=== PATIENT | male | born 1970 | race Caucasian/White ===

== ENCOUNTER → 2023-05-31 15:43 | Outpatient (CLI) | payer BC, SELFPAY ==
[2023-05-31 15:18] LABS: Cholesterol 189 mg/dl (140-200); Triglycerides 40 mg/dl (30-150); VLDL Cholesterol 8 mg/dL (0-40)
[2023-05-31 15:28] LABS: Direct LDL Cholesterol 64.11 mg/dL (100-129)
[2023-05-31 15:37] LABS: Free Thyroxine Index 1.9 ug/dL (5.93-13.13); T4 (Thyroxine) 5.1 ug/dl (5.53-11.0); Triiodothryronine (T3) Uptake 38 % (23.5-40.5)
[2023-05-31 15:51] LABS: Thyroid Stimulating Hormone 1.85 uIU/mL (0.465-4.68)
[2023-05-31 15:58] LABS: Chol/HDL Ratio 1.8 (1-3.5); HDL Cholesterol 108 mg/dl (40-60)
[2023-05-31 16:46] LABS: Barbiturates Screen,Urine Negative ng/ml (<200)
[2023-05-31 16:48] LABS: Cannabinoid Screen,Urine Negative ng/ml (<50)
[2023-05-31 16:49] LABS: Cocaine Screen,Urine Negative ng/ml (<300); Methadone Screen,Urine Negative ng/ml (<300)
[2023-05-31 16:50] LABS: Opiate Screen,Urine Negative ng/ml (<300)
[2023-05-31 16:51] LABS: Phencyclidine Screen,Urine Negative ng/ml (<25)
[2023-05-31 17:01] LABS: Amphetamine/Metha Screen,Urine Negative ng/ml (<1000)
[2023-05-31 17:19] LABS: Hemoglobin A1C 5.4 % (4.0-6.0)
[2023-05-31 17:44] LABS: Benzodiazepines Screen,Urine Negative ng/ml (<200)
[2023-05-31 21:50] LABS: Prostate Specific Ag Screen 0.8 ng/ml (0.0-4.0)
== END ==
PROVIDERS: Family Medicine; PCP Emergency Medicine; Visit Provider Emergency Medicine
DX: E11.9 Type 2 diabetes mellitus without complications (principal); M79.2 Neuralgia and neuritis, unspecified; Z72.0 Tobacco use
CPT/HCPCS: 80061; 80305; 83036; 84436; 84443; 84479; G0103

== ENCOUNTER → 2023-06-14 14:24 | Outpatient (CLI) | payer BC, SELFPAY ==
[2023-06-14 15:29] LABS: Basophils % 0.6 % (0.1-2.0); Eosinophils # 0.2 K/mm3 (0.0-0.4); Eosinophils % 3.2 % (0.1-12.0); Hematocrit 46.4 % (42.0-52.0); Hemoglobin 14.7 g/dL (14.1-18.0); Lymphocytes # 1.9 K/mm3 (0.7-4.5); Lymphocytes % 32.2 % (10-50); Mean Corpuscular HGB Conc 31.8 g/dL (31.8-35.4); Mean Corpuscular Hemoglobin 30.8 pg (27.0-31.2); Mean Corpuscular Volume 97.1 fl (80-94); Mean Platelet Volume 7.6 fl (7.4-10.4); Monocytes # 0.5 K/mm3 (0.1-1.0); Monocytes % 7.5 % (1.7-9.3); Neutrophils # 3.4 K/mm3 (1.8-7.8); Neutrophils % 56.4 % (37.0-80.0); Platelet Count 332 K/mm3 (142-424); Red Blood Count 4.78 M/mm3 (4.60-6.20); Red Cell Distribution Width 15.6 % (11.5-17.5); White Blood Count 5.9 K/mm3 (4.8-10.8)
[2023-06-14 15:48] LABS: Chloride 106 mmol/L (98-107); Potassium 4.4 mmoL/L (3.5-5.1); Sodium 140 mmol/L (136-145)
[2023-06-14 15:50] LABS: Blood Urea Nitrogen 10 mg/dl (9-20); Estimated Glomerular Filt Rate 119 ml/min (>60); GFR (African American) 144 ML/MIN (>60)
[2023-06-14 15:51] LABS: Alanine Aminotransferase 14 U/L (12-78); Albumin/Globulin Ratio 1.4 (1.1-1.8); Alkaline Phosphatase 125 U/L (38-126); Anion Gap 13.4 mEq/L (5-15); Aspartate Amino Transferase 31 U/L (17-59); Calcium 9.2 mg/dl (8.4-10.2); Carbon Dioxide 25 mmol/L (22.0-30.0); Globulin 2.8 g/dL (1.3-3.2); Glucose 74 mg/dl (74-100); Total Protein,Serum 6.8 g/dl (6.3-8.2)
[2023-06-14 15:57] LABS: Bilirubin,Total 0.1 mg/dl (0.2-1.3)
[2023-06-14 16:07] LABS: 25-OH Vitamin D, Total 22.8 ng/mL (30-100)
[2023-06-14 16:08] LABS: T4 (Thyroxine) 4.5 ug/dl (5.53-11.0)
[2023-06-14 16:29] LABS: Thyroid Stimulating Hormone 1.86 uIU/mL (0.465-4.68)
== END ==
PROVIDERS: PCP Emergency Medicine; Visit Provider Family Medicine
DX: G62.9 Polyneuropathy, unspecified (principal); M79.2 Neuralgia and neuritis, unspecified; E03.9 Hypothyroidism, unspecified; Z72.0 Tobacco use; Z79.899 Other long term (current) drug therapy; Z76.89 Persons encountering health services in other specified circumstances
CPT/HCPCS: 36415; 80053; 82306; 84436; 84443; 85025

== ENCOUNTER → 2023-06-19 13:25 | Outpatient (CLI) | payer BC, SELFPAY ==
[2023-06-19 21:22] LABS: Benzodiazepines Screen,Urine Negative ng/ml (<200)
[2023-06-19 21:23] LABS: Amphetamine/Metha Screen,Urine Negative ng/ml (<1000); Barbiturates Screen,Urine Negative ng/ml (<200)
[2023-06-19 21:24] LABS: Cannabinoid Screen,Urine Negative ng/ml (<50); Methadone Screen,Urine Negative ng/ml (<300)
[2023-06-19 21:25] LABS: Cocaine Screen,Urine Negative ng/ml (<300)
[2023-06-19 21:26] LABS: Opiate Screen,Urine Negative ng/ml (<300)
[2023-06-19 21:27] LABS: Phencyclidine Screen,Urine Negative ng/ml (<25)
== END ==
PROVIDERS: PCP Emergency Medicine; Visit Provider Emergency Medicine
DX: Z79.899 Other long term (current) drug therapy (principal)
CPT/HCPCS: 80305

== ENCOUNTER → 2023-09-15 14:30 | Outpatient (CLI) | payer BC, SELFPAY ==
--- NOTE | 2023-09-15 14:31 | CT_ITS ---
FINAL REPORT CLINICAL HISTORY: lung cancer screening, 72-sxyy-ibpu history FINDINGS: CTDI vol (mGy): 2.90 DLP: 115.[address] images of the chest were obtained using the low-dose protocol for screening. There are scattered mediastinal lymph nodes, some with calcifications. Densely calcified left anterior descending coronary artery is noted. No axillary mass or adenopathy is identified. On the lung window images, a 5 mm nodule is seen in the anterior right upper lobe on image 38 of series 604. No other pulmonary mass or nodule is seen. IMPRESSION: Lung RADS category 2S: 5 mm anterior right upper lobe nodule. Densely calcified LAD coronary artery. Recommend 12 month followup low-dose CT for further evaluation. Reviewed, Interpreted and Dictated by Kory Rodriguez MD Transcribed by Marilee Benson Authenticated and . [facility]
== END ==
PROVIDERS: PCP Emergency Medicine; Visit Provider Emergency Medicine
DX: Z72.0 Tobacco use (principal)
CPT/HCPCS: 71271

== ENCOUNTER 2024-09-18 22:56 | Outpatient (CLI) | payer BC, SELFPAY ==
[2024-09-18 23:12] LABS: Hematocrit 40.2 % (42.0-52.0); Hemoglobin 14.1 g/dL (14.1-18.0); Mean Corpuscular HGB Conc 35.1 g/dL (31.8-35.4); Mean Corpuscular Hemoglobin 33.3 pg (27.0-31.2); Mean Corpuscular Volume 94.8 fl (80-94); Mean Platelet Volume 9.9 fl (7.4-10.4); Neutrophils % 47.8 % (37.0-80.0); Platelet Count 330 K/mm3 (142-424); Red Blood Count 4.24 M/mm3 (4.60-6.20); Red Cell Distribution Width 14.6 % (11.5-17.5); White Blood Count 4.5 K/mm3 (4.8-10.8)
[2024-09-18 23:13] LABS: Basophils # 0.1 K/mm3 (0-0.2); Basophils % 1.5 % (0.1-2.0); Eosinophils % 0.2 % (0.1-12.0); Lymphocytes # 1.7 K/mm3 (0.7-4.5); Lymphocytes % 36.4 % (10-50); Monocytes # 0.6 K/mm3 (0.1-1.0); Monocytes % 13.9 % (1.7-9.3); Neutrophils # 2.2 K/mm3 (1.8-7.8)
[2024-09-18 23:36] LABS: Alanine Aminotransferase 12 U/L (12-78); Albumin Level 4.3 g/dl (3.5-5.0); Albumin/Globulin Ratio 1.7 (1.1-1.8); Alkaline Phosphatase 88 U/L (38-126); Anion Gap 10.4 mEq/L (5-15); Aspartate Amino Transferase 35 U/L (17-59); Bilirubin,Total 0.2 mg/dl (0.2-1.3); Blood Urea Nitrogen 8 mg/dl (9-20); Calcium 9.3 mg/dl (8.4-10.2); Carbon Dioxide 29 mmol/L (22.0-30.0); Chloride 104 mmol/L (98-107); Cholesterol 186 mg/dl (140-200); Estimated Glomerular Filt Rate 119 ml/min (>60); GFR (African American) 144 ML/MIN (>60); Globulin 2.6 g/dL (1.3-3.2); Glucose 83 mg/dl (74-100); HDL Cholesterol 92 mg/dl (40-60); Potassium 4.4 mmoL/L (3.5-5.1); Sodium 139 mmol/L (136-145); Total Protein,Serum 6.9 g/dl (6.3-8.2); Triglycerides 49 mg/dl (30-150); VLDL Cholesterol 10 mg/dL (0-40)
[2024-09-18 23:46] LABS: Direct LDL Cholesterol 81.03 mg/dL (100-129)
[2024-09-18 23:52] LABS: 25-OH Vitamin D, Total 18.6 ng/mL (30-100)
[2024-09-19 00:07] LABS: Prostate Specific Ag Screen 0.7 ng/ml (0.0-4.0)
== END 2024-09-18 23:59 | disposition home or self-care (01) ==
LOC: LAB.DROPOF 22:57
PROVIDERS: PCP Nurse Practitioner Family; Visit Provider Nurse Practitioner Family
DX: E03.9 Hypothyroidism, unspecified (principal); R79.89 Other specified abnormal findings of blood chemistry
CPT/HCPCS: 80050; 80053; 80061; 82306; 84443; 85025; G0103

== ENCOUNTER 2025-03-05 09:57 | Outpatient (CLI) | payer BC, SELFPAY ==
--- OUTSIDE RECORDS SUMMARY | 2025-03-05 09:59 | XMS_ITS | Data Portability ---
Author Organization [facility] Address [address] [place] [address] Care Team Providers Care Vehicle Upholsterer Name Role Phone KARY MALHOTRA Referring Provider KARY MALHOTRA Primary Care Provider Assessment Encounter Date Assessment Date Assessment LastModified by Organization Details LastModified Time 07/12/2022 07/12/2022 51-year-old male with: 1) GERD: Not optimally controlled on Omeprazole 20 mg daily. Will change to Pantoprazole 40 mg p.o. daily. He may also take Pepcid complete 1-2x daily as needed for breakthrough heartburn. Standard reflux precautions and dietary recommendations counseled. -Recommended EGD due to persistent symptoms and for screening of Keyes's esophagus, however he declines at this time. 2) History of hepatitis C: Previously treated with SVR achieved. He denies risk factors for re-exposure. He was previously vaccinated against hepatitis A and B. 3) Colorectal cancer screening: Recommended screening colonoscopy. He defers at this time. [email or web address] Not available 07/12/2022 16:12:16 Plan of Treatment Reminders Order Date Submit Date Provider Last Modified By Organization Details Last Modified Time Details Appointments None recorded. Lab None recorded. Referral gastroenter ologist referral 2021 022 [email or web address] 3 Volodymyr Mojica MD, [address] [place] [address] Rd, [address], [place], [address], 09:01:14 Procedures None recorded. Surgeries None recorded. Imaging None recorded. Medication Orders prednisone 20 mg tablet 2022 023 [facility], [address] [place] [address], [address], [place], [address], 3 15:55:07 Augmentin 875 mg-125 mg tablet 2022 023 [facility], [address] [place] [address], [place], [address], 3 15:55:07 Solu-Medrol (PF) 125 mg/2 mL solution for injection 2022 023 [email or web address] Not available 3 08:05:56 Medrol (Harjeet) 4 mg tablets in a dose pack 2022 023 [facility], [address] [place] [address], [address], 3 15:36:30 Mucinex 1,200 mg tablet, extended release 2022 023 [facility], [address] [place] [address], [address], 3 15:06:45 albuterol sulfate HFA 90 mcg/actuati on aerosol inhaler 2022 023 [facility], [address] [place] [address], [place], [address], 3 15:06:38 benzonatate 200 mg capsule 2022 023 [facility], [address] [place] [address], [place], [address], 3 15:06:38 pantoprazol e 40 mg tablet,marissa yed release 2021 022 [facility], [address] [place] [address], [address], 2 15:40:19 Pepcid Complete 10 mg-800 mg-165 mg chewable tablet 2021 022 [facility], [address] [place] [address] [address], [place], [address], 2 16:11:40 omeprazole 20 mg capsule,del ayed release 2021 022 [email or web address] 5 [facility], [address] [place] [address], [address], [place], [address], 2 17:10:25 Carafate 1 gram tablet 2021 022 [facility], [address] [place] [address], [address], [place], [address], 2 16:49:30 Patient TargetsNo targets recorded. Patient Instructions Encounter Date Encounter Id Patient Instructions Last Modified By Organization Details Last Modified Time 02/08/2023 [id number] bronchitis: care instructions Not available 02/08/2023 15:05:58 acute bronchitis education Not available 02/08/2023 15:05:58 02/16/2023 [id number] bronchitis: care instructions Not available 02/16/2023 15:00:16 acute bronchitis education Not available 02/16/2023 15:00:16 Reason for Referral Nursing Faculty Referral for Gastroesophageal reflux disease Referring Physician: Kary Malhotra, Family Medicine, Encounter Date: 06/22/2022 Problems Name Problem SNOMED Code Status Onset Date Resolution Date Notes Provider Name and Address Organization Details Recorded Time Requires vaccinatio n 360400087 Active Deena Couch null, [place] - [facility] - [place] & [place] 2 16:25:42 Current drinker 310212 Active Deena Couch null, [place] [facility] [place] 2 16:25:42 Liver enzymes level above reference range 874053880 Active Deena Couch null, [place] - [facility] [place] 2 16:25:42 Heartburn 18171784 Active Deena Couch null, [place] - [facility] [place] 2 16:25:42 Chronic hepatitis C 153046416 Active Deena Couch null, [place] - [facility] - [place] 2 16:25:42 Biliary sludge 27948157 Active Deena Morgan null, [place] - [facility] - [place] 2 16:25:42 Patient encounter status 644986603 Active Deena Morgan null, [facility] [place] [facility] - [place] & [place] 2 16:25:42 Left inguinal hernia 122085944 Active Deena Morgan null, [place] - [facility] - [place] 2 16:25:42 History of hepatitis C 2438909698287 1 Active Deena Morgan null, [place] - [facility] - [place] & [place] 2 16:25:42 Epigastric pain 92919798 Active Deena ellsworth, [place] - [facility] - [place] & [place] 2 16:25:42 Olecranon bursitis 352280476 Active Deena ellsworth, [place] - [facility] - [place] & [place] 2 16:25:42 Gastroesop hageal reflux disease 834436354 Active 2021 Chace Mccurdy PA-C [address] [facility], [place], [address] , [place] - [facility] - [place] & [place] 2 16:06:59 Problem Notes None recorded. Medical Equipment None Reported. Allergies No known drug allergies Medications Name Sig Start Date Stop Date Status Note LastModified by Organization Details LastModified Time clindamycin HCl 300 mg capsule active Not Available Not Available Not Available Carafate 1 gram tablet Take 1 tablet 4 times a day by oral route after meals. 2021 active Not Available Not Available Not Avai lable Pepcid Complete 10 mg-800 mg-165 mg chewable tablet Chew one tablet and swallow 1-2 times daily as needed for heartburn 2021 active Not Available Not Available Not Avai lable ibuprofen 800 mg tablet 1 {tablet} 3 times a day by oral route. active Not Available Not Available No t Available benzonatate 200 mg capsule Take 1 capsule 3 times a day by oral route as needed for 7 days. active Not Available Not Available No t Available prednisone 20 mg tablet Take 1 tablet every day by oral route for 9 days. active Not Available Not Available No t Available cephalexin 500 mg capsule 06/22 completed Not Available Not Available Not Available pantoprazol e 40 mg tablet,marissa yed release Take 1 tablet by mouth once daily, 30 minutes before morning meal, 30 days active Not Available Not Available No t Available nicotine 21 mg/24 hr daily transdermal patch active Not Available Not Available Not Available gabapentin 300 mg capsule active Not Available Not Available Not Available omeprazole 20 mg capsule,del ayed release Take 1 capsule twice a day by oral route as directed for 30 days. active Not Available Not Available No t Available aspirin 81 mg chewable tablet Chew 1 tablet every day by oral route. active Not Available Not Available No t Available methylpredn isolone 4 mg tablets in a dose pack Take 1 dose pk by oral route for 6 days. active Not Available Not Available No t Available albuterol sulfate HFA 90 mcg/actuati on aerosol inhaler Inhale 2 puffs every 4 hours by inhalatio n route as needed for 30 days. active Not Available Not Available No t Available amoxicillin 875 mg-potassiu m clavulanate 125 mg tablet Take 1 tablet every 12 hours by oral route for 10 days. active Not Available Not Available No t Available Mucinex 1,200 mg tablet, extended release Take 1 tablet twice a day by oral route for 7 days. 2022 active Not Available Not Available Not Avai lable Solu-Medrol (PF) 125 mg/2 mL solution for injection Take 125 mg as needed by injection route as needed. 2022 active Not Available Not Available Not Avai lable buprenorphi ne 8 mg-naloxone 2 mg sublingual film DISSOLVE 1 FILM UNDER THE TONGUE EVERY DAY active Not Available Not Available No t Available Vitals Date Recorded Body height Body mass index (BMI) Body weight Body temperature Provider Name and Address Organization Details Last Updated DateTime 02/08/2023 180.34 cm 21.8 kg/m2 68625.13 g 98 [degF] [facility]nie [facility] [place] [facility] [place] 02/08/2023 14:57:10 Date Recorded Body height Body mass index (BMI) Body weight Body temperature Provider Name and Address Organization Details Last Updated DateTime 02/16/2023 180.34 cm 21.6 kg/m2 55621.82 g 98.8 [degF] Nithya Palacios [facility] & [place] 02/16/2023 14:52:16 Date Recorded Body height Body mass index (BMI) Body weight Body temperature Oxygen saturation Oxygen saturation in Arterial blood by Pulse oximetry Heart rate Systolic blood pressure Diastolic blood pressure Provider Name and Address Organization Details Last Updated DateTime 2 180.34 cm 21.9 kg/m2 06858 g 96.8 [degF] 96 % 96 % 81 /min 130 mm[Hg] 86 mm[Hg] Deena VELEZ [facility] & [place] 2 16:33:05 Date Recorded Body height Body mass index (BMI) Body weight Systolic blood pressure Diastolic blood pressure Provider Name and Address Organization Details Last Updated DateTime 07/12/2022 180.34 cm 21.5 kg/m2 07476.22 g 189 mm[Hg] 78 mm[Hg] Anaya Todd [facility] & [place] 2 16:01:01 Social History Question Answer Notes LastModified by Organizat ion Details LastModified Time Tobacco Smoking Status Current Every Day Smoker Deena Morgan [facility] & [place] 06/22/2022 16:27:01 How Much Tobacco Do You Smoke? 1 PPD Information not available 06/22/2022 Sex: Unknown Functional Status Question Answer Note LastModified by Organization D etails LastModified Time What is your level of alcohol consumption? Moderate [email or web address] Information not available 06/22/2022 Mental Status None recorded. Family History Nothing Reported Notes:mother at 58 cad, father alive htn Medical History No medical history recorded. Immunizations Vaccine Type Date Status Note Provider Nam e and Address Organization Details Recorded Time COVID-19, mRNA, LNP-S, PF, 30 mcg/0.3 mL dose 04/29/2021 completed Nithya ellsworth [facility] & [place] 02/08/2023 14:51:14 COVID-19, mRNA, LNP-S, PF, 30 mcg/0.3 mL dose 05/21/2021 completed Nithya ellsworth [place] - [facility] - [place] 02/08/2023 14:51:14 Hep B, adult 07/25/2019 completed Nithya Palacios null, [place] - [facility] - [place] 02/08/2023 14:51:14 Hep A, adult 07/25/2019 completed Nithya Palacios null, [place] - [facility] - [place] & [place] 02/08/2023 14:51:14 Hep B, adult 12/24/2018 completed Nithya Palacios null, [place] - [facility] - [place] & [place] 02/08/2023 14:51:14 Hep B, unspecified formulation 11/16/2018 completed Deena Couch null, [place] - [facility] - [place] & [place] 06/22/2022 16:25:42 Hep A, adult 11/16/2018 completed Deenajohnnie nuno null, [place] - [facility] - [place] & [place] 06/22/2022 16:25:42 Past Encounters Encounter ID Performer Location Encounter Start Date Encounter Closed Date Diagnosis/Indication Diagnosis SNOMED-CT Code Diagnosis ICD10 Code Diagnosis Note [id number] Kary Malhotra MD [address] [place] [address] 06/22/2022 16:19:37 06/22/2022 16:51:22 Gastroesophageal reflux disease 944340884 K21.9 [id number] Chace Mccurdy PA-C [facility] [address] [place] [address] 07/12/2022 15:36:01 07/12/2022 16:01:51 History of hepatitis C 7754305227 9101 Z86.19 Colorectal cancer screening not done 1968440910 100 Z53.9 Gastroesop hageal reflux disease 304856638 K21.9 [id number] Frannie Johnson, DNP, PANEL MACHINE SETTER-C, SENIOR CAREGIVER [address] [place] [address] 02/08/2023 14:46:00 02/08/2023 15:06:55 Acute bronchitis 36434291 J20.9 [id number] Frannie Johnson, JOHN, PANEL MACHINE SETTER-C, SENIOR CAREGIVER [facility] [address] [facility] [address] [place] [address] 02/16/2023 14:46:23 02/16/2023 15:02:10 Acute bronchitis 43854955 J20.9 Health Concerns Section Related Observation LastModified by Organization Detai ls LastModified Time None Recorded Concern Status LastModified by Organization Details LastModified Time None Recorded Advance Directives Directive None Recorded Payers Insurance Date Sequence Insurance Name Policy Number Policy Elizabeth Covered Member ID Elizabeth Member ID Guarantor Name 07/09/2023 1 [place] [id number] Arsenio Brown [id number] Arsenio Brown Notes Date Note Type Note Provider Name and Address Organization Details Recorded Time 06/22/2022 text/html he is here for follow-up. He is having lot of issues with heartburn. He reports significant epigastric pain which is improved with eating. He is taking some of his 's Protonix which does seem to help a bit. He is a smoker and does have a problem with excessive alcohol consumption. He is asking for GI referral which he has had the past. Kary Malhotra MD [address], [place], [address], [facility] 06/22/2022 17:10:45 07/12/2022 text/html Mr. Brown is a pleasant 51-year-old male with PMH of chronic hepatitis C s/p treatment with Mavyret in 2019, history of biliary sludge, and chronic heartburn who presents to the office today for evaluation of frequent heartburn. He is currently taking Omeprazole 20 mg p.o. daily, which is helpful, however he is having frequent breakthrough symptoms. He uses Rolaids for these episodes without the desired effect. He denies dysphagia, nausea, vomiting, or hematemesis. Chace Mccurdy PA-C [address], [place], [address], [facility] & [place] 07/12/2022 16:12:31 02/08/2023 text/html Per patient he started feeling ill yesterday afternoon. Patient has had body aches but no chills or fever. Patient has had headache but no sore throat. Patient says his lungs feel full. Patient has had nasal congestion, post nasal drip and cough. patient has had wheezing and some shortness of breath. Frannie Johnson DNP, PANEL MACHINE SETTERAvinashC, SENIOR CAREGIVER [address], [place], [address], [facility] & [place] 02/08/2023 15:06:11 02/16/2023 text/html Per patient he w as here last week. patient was diagnosed itwh bronchitis. Patient took steroids and something for cough. patient did not get inhaler filled. Patient says that he still feels short of breath and he has a bad cough. patient says his lungs hurt. patient has not had body aches, chills, or fever. Patient denies nausea/vomiting or diarrhea. Patient has not had headache or sore throat. Frannie Johnson DNP, ESTRELLITAC, SENIOR CAREGIVER [address] [facility], [place], [address], [facility] & [place] 02/16/2023 16:06:05
[2025-03-05 11:00] VITALS: PULSE 84; PULSE 87
[2025-03-05] MEDS: ALBUTEROL 0.083% 2.5 MG/3 ML NEB IH (11:00)
== END 2025-03-05 23:59 | disposition home or self-care (01) ==
LOC: RT 09:58
PROVIDERS: PCP Nurse Practitioner Family; Visit Provider Internal Medicine Pulmonary Disease
DX: J44.9 Chronic obstructive pulmonary disease, unspecified (principal); Z72.0 Tobacco use
CPT/HCPCS: 94060; 94640; 94726; 94729

== ENCOUNTER 2025-04-03 08:21 | Outpatient (CLI) | payer BC, SELFPAY ==
--- OUTSIDE RECORDS SUMMARY | 2025-04-03 08:24 | XMS_ITS | Clinical Summary ---
Author Organization [facility] Address [address] [place] [address] Care Team Providers Care Cataloging Assistant Name Role Phone Pcp, No Primary Care Provider Unavailabl e Allergies No known active allergies Medications albuterol 108 (90 Base) MCG/ACT inhaler Inhale 2 puffs every 4 hours by inhalation route as needed for 30 days. Active predniSONE (Deltasone) 20 MG tablet Take 1 tablet every day by oral route for 9 days. Active pantoprazole (Protonix) 40 MG EC tablet Take 1 tablet by mouth once daily, 30 minutes before morning meal, 30 days Active nicotine (Nicoderm CQ) 21 MG/24HR patch Active clindamycin (Cleocin) 300 MG capsule Active Buprenorphine HCl-Naloxone HCl (Suboxone) 8-2 MG SL film DISSOLVE 1 FILM UNDER THE TONGUE EVERY DAY Active Symbicort 80-4.5 MCG/ACT inhaler USE 1 INHALATION BY MOUTH EVERY DAY 3 Active benzonatate (Tessalon) 200 MG capsule Take 1 capsule 3 times a day by oral route as needed for 7 days. Active aspirin 81 MG chewable tablet Chew 1 tablet (81 mg) Daily. Active amoxicillin-cla vulanate (Augmentin) 875-125 MG tablet Take 1 tablet every 12 hours by oral route for 10 days. Active gabapentin (Neurontin) 600 MG tablet Take 1 tablet (600 mg) by mouth 3 (three) times a day. 4 Active cyclobenzaprine (Flexeril) 10 MG tablet Take 1 tablet (10 mg) by mouth 3 (three) times a day if needed for muscle spasms. 4 Active HYDROcodone-keesha taminophen (Clearfield) 5-325 MG tablet Take 1 tablet (5 mg of hydrocodone) by mouth every 6 (six) hours if needed for severe pain for up to 8 doses. 8 tablet 4 Active Active Problems Problem Noted Date Diagnosed Date Closed displaced fracture of distal phalanx of right middle finger with delayed healing 08/21/2024 Crush injury 08/07/2024 Social History Tobacco Use Types Packs/Day Years Used Date Smoking Tobacco: Every Day Cigarettes Smokeless Tobacco: Never Tobacco Cessation:Ready to Q uit: Not Asked; Counseling Given: Not Answered Alcohol Use Standard Drinks/Week Comments Yes 0 (1 standard drink = 0.6 oz pur e alcohol) PHQ-2 Answer Date Recorded Patient Health Questionnaire-2 Score 0 08/07/2024 Sex and Gender Information Value Date Recorded Sex Assigned at Not on file Legal Sex Male 6:57 PM EDT Gender Identity Not on file Sexual Orientation Not on file Last Filed Vital Signs Vital Sign Reading Time Taken Comments Blood Pressure 148/97 08/21/2024 1:27 PM EST Pulse 59 08/21/2024 1:27 PM EST Temperature 36.6 C (97.8 F) 08/01/2024 9:26 AM EDT Respiratory Rate 16 07/29/2024 5:50 AM EDT Oxygen Saturation 99% 08/21/2024 1:27 PM EST Inhaled Oxygen Concentration - - Weight 70.3 kg (155 lb) 08/21/2024 1:27 PM EST Height 180.3 cm (5' 11 ) 08/21/2024 1:27 PM EST Body Mass Index 21.62 08/21/2024 1:27 PM EST Plan of Treatment Health Maintenance Due Date Last Done Comments [facility]-HIV Screening 1972 [facility]-Hepatitis C Screening 1972 [facility]-Infant/Child/Adol SDOH Screenings 1972 [facility]- SDOH Screenings 1990 [facility]-Adult SDOH Screenings 1990 [facility]-DTaP,Tdap,and Td Vaccine s (1 - Tdap) 12/26/1991 [facility]-Pneumococcal Vaccine: 50 + Years (1 of 2 - PCV) 12/26/1991 [facility]-Zoster Vaccines (1 of 2) 12/26/1991 CT Colonography 2017 Colonoscopy 2017 FIT-DNA 2017 FIT 2017 FOBT 2017 Sigmoidoscopy 2017 [facility]-Colorectal Cancer Screening 2017 [id number] Vaccine (3 - Pfizer risk series) 06/18/2021 05/21/2021, 04/29/2021 [facility]-Influenza Vaccine (#1) 2025 [facility]-Depression Screening 08/07/2025 08/07/2024 [facility]-Hepatitis A Vaccines Aged Out 019, 11/16/2018 No longer eligible based on patient's age to complete this topic [facility]-Hepatitis B Vaccines Completed , 12/24/2018, 11/16/2018 HPV Vaccines Aged Out No longer eligi ble based on patient's age to complete this topic [facility]-HIB Vaccines Aged Out No longer e ligible based on patient's age to complete this topic [facility]-IPV Vaccines Aged Out No longer e ligible based on patient's age to complete this topic [facility]-Rotavirus Vaccines Aged Out No lo nger eligible based on patient's age to complete this topic Goals Goal Patient Goal Type Associated Problems Recent Progress Patient-Stated? Author Patient will verbalize understanding of orthotic wear , care and precautions. Occupational Therapy On track(08/01 11:57 AM EDT) Nicole Ramos, OT Insurance ANTHEM Care Teams Cataloging Assistant Relationship Specialty Start Date End Date Pcp, No [address] [place] [address] PCP - General Family Medicine 07/28/24
--- NOTE | 2025-04-03 08:30 | CT_ITS ---
FINAL REPORT TECHNIQUE: Axial CT images of the chest were obtained without contrast. Low-dose protocol was utilized. This study was performed with techniques to keep radiation doses as low as reasonably achievable (ALARA). Individualized dose reduction techniques using automated exposure control or adjustment of mA and/or kV according to the patient's size were employed. CLINICAL HISTORY: lung cancer screening 1 pack per day for 20 yrs current smoker COMPARISON: 09/15/2023 FINDINGS: CT CHEST WITHOUT, LOW DOSE SCREENING CT Di Vol: 2.90 mGy DLP: 110.98 mGy*cm A few small scattered mediastinal nodes are stable. The heart size is normal. Dense coronary artery calcifications are stable. There is no pleural or pericardial effusion. The lung windows show a stable noncalcified nodule in the anterior right upper lobe along the minor fissure measuring 4 mm on image 12 of series 601 and image 47 of series 3. No new nodules are identified. Limited images of the upper abdomen demonstrate no acute findings. IMPRESSION: Stable right upper lobe nodule. LR Category 2S: 12 month follow-up low-dose chest CT is recommended per Fleischner criteria. Modifier S: Dense coronary artery calcifications. Reviewed, Interpreted and Dictated by Kory Rodriguez MD Transcribed by Precious Torres Authenticated and [facility]
== END 2025-04-03 23:59 | disposition home or self-care (01) ==
LOC: RAD 08:22
PROVIDERS: PCP Nurse Practitioner Family; Visit Provider Internal Medicine Pulmonary Disease
DX: I25.10 Atherosclerotic heart disease of native coronary artery without angina pectoris (principal); R91.1 Solitary pulmonary nodule; F17.210 Nicotine dependence, cigarettes, uncomplicated; Z12.2 Encounter for screening for malignant neoplasm of respiratory organs
CPT/HCPCS: 71271

== ENCOUNTER 2025-07-23 09:09 | Outpatient (CLI) | payer BC, SELFPAY ==
--- NOTE | 2025-07-23 09:15 | CA_ITS ---
APPROVED REPORT EXAM: Comprehensive 2D, Doppler, and color-flow Echocardiogram with contrast Communications Representative: Elisabeth Schrader CRT Ht: 5 ft 11 in Wt: 151lbs BSA: 1.87 BP: 134/90 mmHg Indications: FAMILY HX OF ISCHEMIC HEART DISEASE, ALCOHOL USE 2D Dimensions LA Volume 57.00 mL LA Volume Index 29.70 mL/m2 (M/F) 16-34 M-Mode Dimensions RVDd 3.16 cm (0.9-2.6) LA Diam 3.44 cm (1.9-4.0) LVDd 5.50 cm (3.5-5.7) LVDs 3.72 cm (3.5-5.7) IVSd 1.22 cm (0.6-1.1) PWd 0.88 cm (0.6-1.1) EF (Teich) 60.00% FS 32.40% EDV (Teich) 147.40 mL TAPSE 0.95 (<1.7) ESV (Teich) 58.90 mL LV Diastology E Decel Time 277 (160-240 msec) E/A Ratio 1.30 MED A' 10.50 cm/s LAT A' 10.20 cm/s Aortic Valve AO Peak GR. 7.80 mmHg Mitral Valve MV E Max Madhu. 82.0 (40-130 cm/s) MV A Velocity 63.0 (40-130 cm/s) E/A Ratio 1.30 MV PHT 81.0 ms Tricuspid Valve TR P. Velocity 269.00 cm/s RAP Estimate 10.00 mmHg RVSP 38.90 mmHg Left Ventricle The left ventricle is normal size. Left ventricular systolic function is normal. The left ventricular ejection fraction is within the normal range. There is normal left ventricular wall thickness. There is normal LV segmental wall motion. The left ventricular diastolic function is normal. LVEF is 55% Right Ventricle The right ventricle is normal size. The right ventricular systolic function is normal. Atria The left atrium is mildly dilated. The right atrium is mildly dilated. There is no color Doppler evidence of interatrial shunt. Aortic Valve The aortic valve opens well. There is no hemodynamically significant aortic valvular stenosis. No aortic regurgitation is present. Mitral Valve The mitral valve is normal in structure. No evidence of mitral valve stenosis. Trace mitral regurgitation is present. Tricuspid Valve The tricuspid valve leaflets are thin and pliable. Trace tricuspid regurgitation. There is insufficient TR jet to estimate RVSP. Pulmonic Valve The pulmonary valve is grossly normal in structure. Trace pulmonic valve regurgitation is present. Great Vessels The aortic root is normal in size. IVC is normal in size and collapses >50% with inspiration. Pericardium There is no pericardial effusion. Other Information Study Quality: Fair Conclusion Normal biventricular systolic function. Mild biatrial dilation. No significant valvular stenosis or regurgitation. Electronically signed by : Consuelo Garner MD 07/29/2025 12:07:46
--- OUTSIDE RECORDS SUMMARY | 2025-07-23 09:19 | XMS_ITS | Clinical Summary ---
[facility] Address [address] [place] [id number] Care Team Providers Care Crystal Cutter Name Role Phone Tushar Malhotra MD Primary Care Provider [phone] Social History Tobacco Use Types Packs/Day Years Used Date Smoking Tobacco: Never Assessed Abuse Screen Answer Date Recorded Unsafe at Home or Work/School Not on file Feels Threatened by Someone? Not on file 09/2023 Does Anyone Keep You from Co ntacting Others or Doint Things Outside the Home? Not on file 07/13/2023 Physical Sign of Abuse Present Not on file 1 Housing Stability Answer Date Recorded Current Living Arrangements Not on file 07/02 Potentially Unsafe Housing Conditions Not on thony e 07/13/2023 Family and Community Support Answer Abhishek e Recorded Help with Day-to-Day Activities Not on file 07/13/2023 Lonely or Isolated Not on file 07/13/2023 Employment Answer Date Recorded Do you want help finding or keeping work or a augustine b? Not on file 07/13/2023 Disabilities Answer Date Recorded Concentrating, Remembering, or Making Decisions Difficulty Not on file 07/13/2023 Doing Errands Independently Difficulty Not on fi le 07/13/2023 Education Answer Date Recorded Help with school or training? Not on file Preferred Language Not on file 07/13/2023 Sex and Gender Information Value Date Recorded Sex Assigned at Not on file Legal Sex Male 9:48 AM EDT Gender Identity Not on file Sexual Orientation Not on file Plan of Treatment Health Maintenance Due Date Last Done Comments TDAP/TD VACCINES (1 - Tdap) 12/26/1991 COLOGUARD 2017 COLON CANCER SCREENING 5 YEAR SIGMOIDOSCOPY 2017 COLONOSCOPY 2017 [address]AL CANCER SCREENING 2017 CT COLONOGRAPHY 2017 FECAL OCCULT BLOOD TEST 2017 FIT Testing (1 year) 2017 ANNUAL PHYSICAL 06/28/2018 HEPATITIS C SCREENING 06/28/2018 Pneumococcal Vaccine 50+ (1 of 1 - PCV) 2022 ZOSTER VACCINE (1 of 2) 2022 INFLUENZA VACCINE 05/02/2025 Insurance [facility] PPO Member Subscriber Plan / Payer (Ef fective 2020-Present) Name:Arsenio Brown Relation to Subscriber:Self Name:Arsenio Brown Payer ID:[id number] (NAIC) Type:Not on file Address: [facility] [facility] [place] [address] [place] [id number] Care Teams Crystal Cutter Relationship Specialty Start Date End Date Tushar Malhotra MD [address] [facility] [address] [place] [address] PCP - General Family Medicine 06/28/18
--- OUTSIDE RECORDS SUMMARY | 2025-07-23 09:20 | XMS_ITS | Data Portability ---
Author Organization [facility] & MARLA Poon ADMIN Address [address] [place] [address] Care Team Providers Care Photogrammetric Stereo Compiler Name Role Phone KARY MALHOTRA Referring Provider KARY MALHOTRA Primary Care Provider [phone] Assessment Encounter Date Assessment Date Assessment LastModified [...] screening colonoscopy. He defers at this time. [email or web address] Not available 07/12/2022 16:12:16 Plan of Treatment Reminders Order Date Submit Date Provider Last Modified By Organization Details Last Modified Time Details Appointments None recorded. Lab None recorded. Referral gastroenter ologist referral 2021 022 [email or web address] 3 Volodymyr Mojica MD, [address] [place] [address] Rd, [address], [place], [address], 09:01:14 Procedures None recorded. Surgeries None recorded. Imaging None recorded. Medication Orders prednisone 20 mg tablet 2022 023 [facility], [address] [place] [address], [address], [address], 3 15:55:07 Augmentin 875 mg-125 mg tablet 2022 023 [facility], [address] [place] [address], [address], 3 15:55:07 Solu-Medrol (PF) 125 mg/2 mL solution for injection 2022 023 [email or web address] Not available 3 08:05:56 Medrol (Harjeet) 4 mg tablets in a dose pack 2022 023 [facility], [address] [place] [address], [address], 3 15:36:30 Mucinex 1,200 mg tablet, extended release 2022 023 [facility], [address] [place] [address], [address], 3 15:06:45 albuterol sulfate HFA 90 mcg/actuati on aerosol inhaler 2022 023 [facility], [address] [place] [address], [place], [address], 3 15:06:38 benzonatate 200 mg capsule 2022 023 [facility], [address] [place] [address], [place], [address], 3 15:06:38 pantoprazol e 40 mg tablet,marissa yed release 2021 022 [facility], [address] [place] [address], [address], 2 15:40:19 Pepcid Complete 10 mg-800 mg-165 mg chewable tablet 2021 022 [facility], [address] [place] [address], [address], [place], [address], 16:11:40 omeprazole 20 mg capsule,del ayed release 2021 022 [email or web address] 5 [facility], [address] [place] [address], [address], [place], [address], 17:10:25 Carafate 1 gram tablet 2021 022 [facility], [address] [place] [address], [address], [place], [address], 16:49:30 Patient TargetsNo targets recorded. 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 Referral for Gastroesophageal reflux disease Referring Physician: Kary Malhotra Family Medicine, Encounter Date: 06/22/2022 Problems Name Problem SNOMED Code Status Onset Date Resolution Date Notes Provider Name and Address Organization Details Recorded Time Requires vaccinatio n 647609096 Active Deena Couch null, [place] - [facility] - [place] & [place] 2 16:25:42 Current drinker 629244 Active Deena Couch [place], [place] [facility] [place] & [place] 2 16:25:42 Liver enzymes level above reference range 573570996 Active Deena Couch null, [place] - [facility] [place] 2 16:25:42 Heartburn 73555468 Active Deena Couch null, [place] - [facility] - [place] & [place] 2 16:25:42 Chronic hepatitis C 280410084 Active Deena Couch null, [place] - [facility] - [place] & [place] 2 16:25:42 Biliary sludge 01017635 Active Deena Morgan null, [place] - [facility] - [facility] & [place] 2 16:25:42 Patient encounter status 289712410 Active Deena Morgan null, [place] - [facility] - [place] & [place] 2 16:25:42 Left inguinal hernia 774771329 Active Deena Morgan null, [place] - [facility] - [place] & [place] 2 16:25:42 History of hepatitis C 0224419457419 1 Active Deena Morgan null, [place] - [facility] - [place] & [place] 2 16:25:42 Epigastric pain 29478138 Active Deena Morgan null, [place] - [facility] - [place] & [place] 2 16:25:42 Olecranon bursitis 712099879 Active Deena Morgan null, [place] - [facility] - [place] & [place] 2 16:25:42 Gastroesop hageal reflux disease 873768372 Active 2021 Chace Mccurdy PA-C [address] [facility], [place], [address] , [place] - [facility] - [place] & [place] 2 16:06:59 Problem Notes None recorded. Medical [...] Updated DateTime 02/08/2023 180.34 cm 21.8 kg/m2 65453.13 g 98 [degF] Nithya Justiceett [facility] - [place] - [place] & [place] 02/08/2023 14:57:10 Date Recorded Body height Body mass index (BMI) Body weight Body temperature Provider Name and Address Organization Details Last Updated DateTime 02/16/2023 180.34 cm 21.6 kg/m2 52870.82 g 98.8 [degF] Nithya Palacios [facility] & [place] 02/16/2023 14:52:16 Date Recorded Body height Body mass index (BMI) Body weight Body temperature Oxygen saturation Oxygen saturation in Arterial blood by Pulse oximetry Heart rate Systolic And Diastolic Provider Name and Address Organization Details Last Updated DateTime 180.34 cm 21.9 kg/m2 82426 g 96.8 [degF] 96 % 96 % 81 /min 130/86 mm[Hg] Deena VELEZ [facility] & [place] 16:33:05 Date Recorded Body height Body mass index (BMI) Body weight Systolic And Diastolic Provider Name and Address Organization Details Last Updated DateTime 07/12/2022 180.34 cm 21.5 kg/m2 54085.22 g 189/78 mm[Hg] Anaya Todd [facility] & [place] 07/12/2022 16:01:01 Social History Question Answer Notes LastModified by Organizat ion Details LastModified Time Tobacco Smoking Status Current Every Day Smoker Deena Morgan [facility] & [place] 06/22/2022 16:27:01 How Much Tobacco Do You Smoke? 1 PPD [email or web address] Information not available 06/22/2022 Sex: Unknown Functional Status Question Answer Note LastModified by Organization D etails LastModified Time What is your level of alcohol consumption? Moderate [email or web address] Information not available 06/22/2022 Mental Status None recorded. Family History Nothing Reported Notes:mother at 58 cad, father alive htn Medical History No medical history recorded. Immunizations Vaccine Type Date Status Note Provider Nam e and Address Organization Details Recorded Time COVID-19, mRNA, LNP-S, PF, 30 mcg/0.3 mL dose 04/29/2021 completed Nithya ellsworth [facility] & [place] 02/08/2023 14:51:14 COVID-19, mRNA, LNP-S, PF, 30 mcg/0.3 mL dose 05/21/2021 completed Nithya ellsworth [facility] & [place] 02/08/2023 14:51:14 Hep B, adult 07/25/2019 completed Nithya Palacios null, [place] - [facility] - [place] & [place] 02/08/2023 14:51:14 Hep A, adult 07/25/2019 completed Nithya Palacios null, [place] - [facility] - [place] & [place] 02/08/2023 14:51:14 Hep B, adult 12/24/2018 completed Nithya Palacios null, [place] - [facility] - [place] & [place] 02/08/2023 14:51:14 Hep B, unspecified formulation 11/16/2018 completed Deena Morgan null, [place] - [facility] - [place] & [place] 06/22/2022 16:25:42 Hep A, adult 11/16/2018 completed Deena nuno null, [place] - [facility] - [place] & [place] 06/22/2022 16:25:42 Past Encounters Encounter ID Performer Location Encounter Start Date Encounter Closed Date Diagnosis/Indication Diagnosis SNOMED-CT Code Diagnosis ICD10 Code Diagnosis IMO Codes Diagnosis Note [id number] Kary Malhotra MD [address] [place] [address] 06/22/2022 16:19:37 06/22/2022 16:51:22 Gastroesophageal reflux disease 958788427 K21.9 [id number] Chace Mccurdy PA-C [facility] [address] [place] [address] 07/12/2022 15:36:01 07/12/2022 16:01:51 History of hepatitis C 1439530891 9101 Z86.19 Colorectal cancer screening not done 4827386665 100 Z53.9 Gastroesop hageal reflux disease 737450847 K21.9 [id number] Frannie Johnson, DNP, MATHEMATICS INSTRUCTOR-C, MOVIE EDITOR ZZ [address] [place] [address] 02/08/2023 14:46:00 02/08/2023 15:06:55 Acute bronchitis 41013326 J20.9 [id number] Frannie Johnson, JOHN, MATHEMATICS INSTRUCTOR-C, MOVIE EDITOR ZZ [facility] [address] [facility] [address] [place] [address] 02/16/2023 14:46:23 02/16/2023 15:02:10 Acute bronchitis 99387406 J20.9 Health Concerns Section Related Observation LastModified by Organization Detai ls LastModified Time None Recorded Concern Status LastModified by Organization Details LastModified Time None Recorded Advance Directives Directive None Recorded Payers Insurance Date Sequence Insurance Name Policy Number Policy Elizabeth Covered Member ID Elizabeth Member ID Guarantor Name 07/09/2023 1 [place] [id number] Arsenio Brown [id number] Arsenio Brown Notes Date Note Type [...] has had the past. Kary Malhotra MD [address], [place], [address], [facility] 06/22/2022 17:10:45 07/12/2022 text/html Mr. Brown is [...] nausea, vomiting, or hematemesis. Chace Mccurdy PA-C [address], [place], [address], [facility] & [place] 07/12/2022 16:12:31 02/08/2023 text/html Per patient he started feeling ill yesterday afternoon. Patient has had body aches but no chills or fever. Patient has had headache but no sore throat. Patient says his lungs feel full. Patient has had nasal congestion, post nasal drip and cough. patient has had wheezing and some shortness of breath. Frannie Johnson DNP, MATHEMATICS INSTRUCTORAvinashC, MOVIE EDITOR [address] [facility], [place], [address], [facility] & [place] 02/08/2023 15:06:11 02/16/2023 text/html Per patient he was here last week. patient was diagnosed itwh [...] or sore throat. Frannie Johnson DNP, ESTRELLITAC, MOVIE EDITOR [address] [facility], [place], [address], [facility] & [place] 02/16/2023 16:06:05
--- NOTE | 2025-07-23 10:00 | CA_ITS ---
APPROVED REPORT Exam: Exercise Treadmill Technologist: Joie Hwang Stress Nurse: Hetal OROZCO, RN Ht: 5 ft 11 in Wt: 151 lbs BSA: 1.87 m2 HR: 62 bpm BP: 123/83 mmHg Indications: Dyspnea on exertion, Family history of ischemic heart disease before age 50 Stress Test Details Test: Exercise stress testing was performed using a Neel protocol. HR Resting HR: 62 bpm Max Heart Rate (APMHR): 168.935266 bpm Max HR Achieved: 162 bpm Target HR (85% APMHR): 142.546007 bpm % of APMHR: 96.43 Recovery HR: 81 bpm BP Resting BP: 123.0/83.0 mmHg Max BP: 160.0/84.0 mmHg Recovery BP: 112.0/80.0 mmHg ECG Stress ECG Conclusion Symptoms: None Arrhythmias/Ectopy: PVC/Ventricular couplet ST-T Changes: Less than 0.[address] segment changes. Conclusion: Patel treadmill score: +10 Electronically signed by : Consuelo Garner MD 07/23/2025 12:24:42
[2025-07-23 10:23] VITALS: BP 123/83; BP 160/84; PULSE 60; RESP 14
== END 2025-07-23 23:59 | disposition home or self-care (01) ==
LOC: RT 09:09
PROVIDERS: PCP Nurse Practitioner Family; Visit Provider Nurse Practitioner Family
DX: I51.7 Cardiomegaly (principal); I49.3 Ventricular premature depolarization; I25.10 Atherosclerotic heart disease of native coronary artery without angina pectoris; R94.31 Abnormal electrocardiogram [ECG] [EKG]; Z82.49 Family history of ischemic heart disease and other diseases of the circulatory system; F10.90 Alcohol use, unspecified, uncomplicated
CPT/HCPCS: 93017; 93018; 93306